=== PATIENT | male | born 1990 | race Caucasian/White ===

== ENCOUNTER 2020-11-03 19:39 | Emergency (ER) | payer SELFPAY ==
[2020-11-03 20:05] VITALS: BP 128/84; PULSE 78; RESP 16; TEMP 36.7; O2SAT 98; BMI 28.7
--- NOTE | 2020-11-03 22:18 | ED_ITS ---
HPI - General Adult General: Chief complaint: General Medical Stated complaint: abd pain Time Seen by Provider: 11/03/20 22:18 History of Present Illness: HPI narrative: Patient is a 29-year-old male comes to the ED with abdominal pain. Patient says symptoms started several hours just prior to arrival. He noticed that when he was taking a shower he looked down and his left inguinal region he saw a bulging mass in his left inguinal region. He said he started having some pain there in the left inguinal region. He rates his pain currently a 3 out of 10. 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 Denies any fever, chills, nausea/vomiting, diarrhea or constipation, chest pain, dysuria or hematuria. Associated symptoms: Deny chest pain, dyspnea, headache(s), nausea, rash, palpitations or vomiting Review of Systems Const: Denies: fever(s), chills or fatigue Eyes: Denies: change in vision or eye discomfort ENMT: Denies: throat pain, odynophagia, nasal discharge or nasal congestion Card: Denies: chest pain, palpitations, edema, swelling of feet/ankles, dyspnea on exertion or orthopnea Resp: Denies: dyspnea, productive cough or non-productive cough GI: Reports: abdominal pain; Denies: nausea, vomiting, diarrhea, constipation or hematochezia : Denies: flank pain, difficulty urinating, dysuria or hematuria Musc: Denies: neck pain, back pain or extremity swelling Skin/Breast: Denies: rash or new lesions Neuro: Denies: headache(s), numbness in extremities or weakness in extremities Physical Exam Const: COMMON NORMALS: no acute distress, patient oriented x3 and alert GENERAL APPEARANCE: cooperative and comfortable HENMT: COMMON NORMALS: normocephalic HEAD & SCALP: normocephalic MOUTH: Normal oral and palatal mucosa present THROAT: posterior oropharynx normal and uvula midline Eye: COMMON NORMALS: Equal, round and reactive pupils present PUPIL: Yes Equal, round and reactive pupils present Neck/C-Spine: COMMON NORMALS: supple GENERAL: Yes normal visual inspection Resp: COMMON NORMALS: normal respiratory effort, No retractions, No use of accessory muscles and clear to auscultation bilaterally AUSCULTATION: clear to auscultation bilaterally Cardio: COMMON NORMALS: regular rate, regular rhythm, S1 normal heart sound present, S2 normal heart sound present, No gallops present (Cardio), No clicks present (Cardio), No murmurs present (Cardio) and Peripheral pulses 2+ throughout RATE: regular rate RHYTHM: regular rhythm HEART SOUNDS: S1 normal heart sound present and S2 normal heart sound present PERIPHERAL PULSES: Peripheral pulses 2+ throughout GI: COMMON NORMALS: Normal to inspection, nondistended, normoactive bowel sounds present, Soft to palpation, non-tender and no masses PALPATION: Yes Soft to palpation, Yes Tenderness to palpation present (GI) Details: other (Left lower inguinal region.) and Yes Hernia present (Hernia is easily reducible.) indirect inguinal (Reducible mass approximately 2 to 3 cm in size.) Indirect inguinal hernia laterality: left : COMMON NORMALS: Yes no CVA tenderness BLADDER/KIDNEY EXAM: Yes no CVA tenderness Back/Pelvis: COMMON NORMALS: no CVA tenderness Extremity: COMMON NORMALS: normal to inspection Neuro: COMMON NORMALS: patient oriented x3 and moves all extremities SENSORIUM/ORIENTATION: Yes alert Skin: GENERAL SKIN EXAM: dry skin Course Vital Signs: Vital signs: Vital Signs Temperature 98.1 F 11/03/20 20:05 Pulse Rate 71 11/04/20 00:23 Respiratory Rate 18 11/04/20 00:23 Blood Pressure 135/89 11/04/20 00:23 Pulse Oximetry 100 11/04/20 00:23 MDM - General Adult MDM Narrative: Medical decision making narrative: Patient is a 29-year-old male comes to the ED with left inguinal hernia. Left inguinal hernia. Hernia was easily reducible. CBC and CMP were unremarkable. CT of abdomen showed left indirect inguinal hernia. I placed an order with case management for patient be referred to general surgery. Patient was diagnosed with left inguinal hernia discharged home. He was told that case management will contact him to set up appoint with general surgery in the next couple days. Return to ED precautions given. Patient understood agree with plan. Lab Data: Attestation: I reviewed the patient's lab results. Labs: Lab Results 11/03/20 11/03/20 Range/Units 23:08 23:08 WBC 6.8 (4.0-10.0) 10^3/ uL RBC 4.73 (4.1-5.3) 10^6/u L Hgb 14.0 (11.7-16.6) g/dL Hct 42.1 (42.0-52.0) % MCV 89.0 (80-94) fL MCH 29.6 (28.0-34.0) pg MCHC 33.3 (30.0-36.0) g/dL RDW 12.3 (12.1-15.1) % Plt Count 218 (130-400) 10^3/c mm MPV 9.8 (7.4-10.4) fL Neut % (Auto) 59.9 % Lymph % (Auto) 32.4 % Powell % (Auto) 6.6 % Eos % (Auto) 0.7 % Baso % (Auto) 0.3 % Neut # (Auto) 4.09 (1.8-7.7) 10^3/u L Lymph # (Auto) 2.2 (0.8-4.8) 10^3/u L Powell # (Auto) 0.5 (0.2-0.9) 10^3/u L Eos # (Auto) 0.1 (0.0-0.8) 10^3/u L Baso # (Auto) 0.0 (0.0-0.1) 10^3/u L Nucleated RBC % (a uto) 0 % Nucleated RBCs # 0.0 /100WBC Sodium 137 (136-145) mmol/L Potassium 4.0 (3.5-5.1) mmol/L Chloride 102 (98-107) mmol/L Carbon Dioxide 26 (22-29) mmol/L Anion Gap 13.0 (5-19) BUN 10 (6-20) mg/dL Creatinine 0.9 (0.7-1.2) mg/dL GFR Calculation 99.8 (90-130) mL/min Glucose 84 (65-115) mg/dL Calculated Osmolal ity 282 L (285-295) mOsm/k g Calcium 9.0 (8.5-10.5) mg/dL Total Bilirubin 0.3 (0.15-1.2) mg/dL AST 15 (0-40) U/L ALT 16 (0-41) U/L Alkaline Phosphata se 85 (40-130) IU/L Total Protein 7.1 (6.6-8.7) g/dL Albumin 4.1 (3.5-5.2) g/dL Globulin 3.0 (1.3-4.6) g/dL Imaging Data^: CT Abd/Pel: Attestation: I personally reviewed and interpreted this imaging study as follows: [facility]'s [facility]: [facility] [address] [place] [address] CT Scan Report Signed Patient: Jd Watts Jr Unit #: [id number] : 1990 Acct#:[id number] Age/Sex: 29 / M ADM Date: 11/03/20 Loc: ER Room/Bed: Attending Dr: Ordering Provider/Ordering MD: Les Ames Date of Service: 11/03/20 Procedure(s): CT abdomen pelvis w con* [id number] Accession Number(s): [id number] Report Number: [id number] PROCEDURE INFORMATION: Exam: CT Abdomen And Pelvis With Contrast Exam date and time: 11/03/2020 10:51 PM Age: 29 years old Clinical indication: Abdominal pain; Localized; Left lower quadrant (llq); Patient HX: Pain in left groin; Additional info: Left inguinal hernia TECHNIQUE: Imaging protocol: Computed tomography of the abdomen and pelvis with contrast. Radiation optimization: All CT scans at this facility use at least one of these dose optimization techniques: automated exposure control; mA and/or kV adjustment per patient size (includes targeted exams where dose is matched to clinical indication); or iterative reconstruction. Contrast material: OMNI 300; Contrast volume: 95 ml; Contrast route: INTRAVENOUS (IV); COMPARISON: No relevant prior studies available. RADIATION DOSE METRICS: Total DLP (mGy-cm): 593.65 FINDINGS: Liver: Normal. No mass. Gallbladder and bile ducts: Normal. No calcified stones. No ductal dilation. Pancreas: Normal. No ductal dilation. Spleen: Normal. No splenomegaly. Adrenal glands: Normal. No mass. Kidneys and ureters: Normal. No hydronephrosis. Stomach and bowel: Unremarkable. No obstruction. No mucosal thickening. Appendix: The appendix is normal. Intraperitoneal space: Unremarkable. No free air. No significant fluid collection. Vasculature: Unremarkable. No abdominal aortic aneurysm. Lymph nodes: Unremarkable. No enlarged lymph nodes. Urinary bladder: Unremarkable as visualized. Reproductive: Unremarkable as visualized. Bones/joints: Bilateral L5 spondylolysis is noted. No acute fracture Soft tissues: Small left indirect inguinal hernia containing fat is noted. CT/CT abdomen pelvis w con* [id number] IMPRESSION: No acute abnormality is seen. Small left indirect inguinal hernia containing fat is noted. Radiation Dose CTDIVOL = (mGy): DLP = 593.65 (mGy-cm) Dictated By: Fabien Alexander MD Signed By: Fabien Alexander MD Signed Date/Time: 11/03/202328 DD/ 27 Discharge Plan Discharge Patient Disposition: Home Clinical Impression: Indirect inguinal hernia Condition: Stable Discharge Orders: Discharge ED (Routine); Ordered 11/04/20 Ordered By: Les Ames Discharge Diet: Regular Discharge Activity: Increase activity as tolerated Patient Instructions: Inguinal Hernia (ED) Activity Restrictions/Additional Instructions: Follow-up with medical provider as directed. Case management should be contacting you in the next several days to set up an appointment with the general surgeon for evaluation of indirect inguinal hernia. Make sure to use proper lifting technique and body mechanics and try to avoid any heavy lifting if possible. Return to the ER or your medical provider if condition worsens. Pl ease read and understand discharge instructions. If any questions, please ask. Coding Level of Care Code ED Image Archivist for Ezequiel Fwd Exam Comprehensive
--- NOTE | 2020-11-03 22:48 | CTR_ITS ---
PROCEDURE INFORMATION: Exam: CT Abdomen And Pelvis With Contrast Exam date and time: 11/03/2020 10:51 PM Age: 29 years old Clinical indication: Abdominal pain; Localized; Left lower quadrant (llq); Patient HX: Pain in left groin; Additional info: Left inguinal hernia TECHNIQUE: Imaging protocol: Computed tomography of the abdomen and pelvis with contrast. Radiation optimization: All CT scans at this facility use at least one of these dose optimization techniques: automated exposure control; mA and/or kV adjustment per patient size (includes targeted exams where dose is matched to clinical indication); or iterative reconstruction. Contrast material: OMNI 300; Contrast volume: 95 ml; Contrast route: INTRAVENOUS (IV); COMPARISON: No relevant prior studies available. RADIATION DOSE METRICS: Total DLP (mGy-cm): 593.65 FINDINGS: Liver: Normal. No mass. Gallbladder and bile ducts: Normal. No calcified stones. No ductal dilation. Pancreas: Normal. No ductal dilation. Spleen: Normal. No splenomegaly. Adrenal glands: Normal. No mass. Kidneys and ureters: Normal. No hydronephrosis. Stomach and bowel: Unremarkable. No obstruction. No mucosal thickening. Appendix: The appendix is normal. Intraperitoneal space: Unremarkable. No free air. No significant fluid collection. Vasculature: Unremarkable. No abdominal aortic aneurysm. Lymph nodes: Unremarkable. No enlarged lymph nodes. Urinary bladder: Unremarkable as visualized. Reproductive: Unremarkable as visualized. Bones/joints: Bilateral L5 spondylolysis is noted. No acute fracture Soft tissues: Small left indirect inguinal hernia containing fat is noted. CT/CT abdomen pelvis w con* [id number] IMPRESSION: No acute abnormality is seen. Small left indirect inguinal hernia containing fat is noted. Radiation Dose CTDIVOL = (mGy): DLP = 593.65 (mGy-cm)
[2020-11-03] MEDS: iohexol 300 mg/mL 100 mL Btl IV (23:15)
[2020-11-03 23:16] LABS: Basophils % 0.3 %; Eosinophils # 0.1 10^3/uL (0.0-0.8); Eosinophils % 0.7 %; Hematocrit 42.1 % (42.0-52.0); Lymphocytes # 2.2 10^3/uL (0.8-4.8); Lymphocytes % 32.4 %; Mean Corpuscular HGB Conc 33.3 g/dL (30.0-36.0); Mean Corpuscular Hemoglobin 29.6 pg (28.0-34.0); Mean Platelet Volume 9.8 fL (7.4-10.4); Monocytes # 0.5 10^3/uL (0.2-0.9); Monocytes % 6.6 %; Neutrophils # 4.09 10^3/uL (1.8-7.7); Neutrophils % 59.9 %; Nucleated Red Blood Cells % 0 %; Platelet Count 218 10^3/cmm (130-400); Red Blood Count 4.73 10^6/uL (4.1-5.3); Red Cell Distribution Width 12.3 % (12.1-15.1); White Blood Count 6.8 10^3/uL (4.0-10.0)
[2020-11-03 23:39] LABS: Alanine Aminotransferase 16 U/L (0-41); Albumin Level 4.1 g/dL (3.5-5.2); Alkaline Phosphatase 85 IU/L (40-130); Aspartate Amino Transferase 15 U/L (0-40); Blood Urea Nitrogen 10 mg/dL (6-20); Carbon Dioxide 26 mmol/L (22-29); Chloride 102 mmol/L (98-107); Glomerular Filtration Rate 99.8 mL/min (90-130); Glucose 84 mg/dL (65-115); Osmolality Calculated 282 mOsm/kg (285-295); Sodium 137 mmol/L (136-145); Total Bilirubin 0.3 mg/dL (0.15-1.2); Total Protein 7.1 g/dL (6.6-8.7)
[2020-11-03] MEDS: sodium chloride 0.9% 1,000 ML 999 ML IV (23:45)
[2020-11-04 00:23] VITALS: BP 135/89; PULSE 71; RESP 18; O2SAT 100
--- NOTE | 2020-11-06 09:55 | DCPLANNER ---
engineering program manager had message to schedule a follow up appointment for patient with general surgery. engineering program manager emailed patients information to Jose at [facility] General Surgery. Patients information will be printed and reviewed. Clinic will call patient with appointment information.
--- NOTE | 2020-11-08 13:42 | DCPLANNER ---
Patient has a follow up appointment scheduled for , November 16, 2020 at 10:[address] Hicks at [facility] General Surgery. Clinic will call patient with appointment information.
--- NOTE | 2020-11-29 15:41 | DCPLANNER ---
Patient had a follow up appointment scheduled for 11.16.[address] Contreras at general surgery - patient did attend appointment.
== END 2020-11-04 00:25 | disposition home or self-care (01) ==
PROVIDERS: Emergency Provider Physician Assistant
DX: K40.90 Unilateral inguinal hernia, without obstruction or gangrene, not specified as recurrent (principal)
CPT/HCPCS: 74177; 80053; 85025; 96360; 99283; J7030; Q9967

== ENCOUNTER → 2020-11-21 09:46 | Outpatient (BNVA) | payer SELFPAY | PROVIDERS: Visit Provider Surgery | DX: K40.90 Unilateral inguinal hernia, without obstruction or gangrene, not specified as recurrent (principal); Z20.822 Contact with and (suspected) exposure to COVID-19 | CPT/HCPCS: 87635 ==

== ENCOUNTER 2020-11-27 06:42 | Day surgery (SDC) | payer SELFPAY ==
[2020-11-27] VITALS (9 sets, daily range): BP systolic 124–171; BP diastolic 78–118; PULSE 58–121; RESP 15–25; TEMP 36.6–36.9; O2SAT 98–100
--- NOTE | 2020-11-27 07:22 | ANES.PREANE2 ---
Pre-Anesthetic Assessment Pre-Anesthetic Assessment: Height/Weight: Height 1.78 m Weight 86.183 kg Temp Pulse Resp BP Pulse Ox 98.5 F 74 18 125/78 99 11/27/20 06:59 11/27/20 06:59 11/27/20 06:59 11/27/20 06:59 11/27/20 06:59 Preop Diagnosis: Left inguinal hernia Proposed Procedure: Operation Date: 11/27/20 08:15 Proposed Procedures p Laparoscopic Inguinal Hernia Repair w/Mesh left poss right inguinal hernia repair with mesh poss open 95544 K40.90(Not Applicable) - Too Hicks MD Was Beta Kannan taken within 24 hours: N/A Was Clonidine taken within 24 hours: N/A Last intake: Intake Last Liquid Date 11/26/20 Last Liquid Time 20:00 Last Solid Date 11/26/20 Last Solid Time 20:00 Exam: Pre-Anes Outpt Exam: alert, oriented x 3, clear to auscultation bilaterally and regular rate & rhythm Airway: Submandibular: WNL Cervical ROM: WNL MP: 2 Dentition: Chipped Additional comments: several missing History/ROS: No significant history except as noted and No significant complaints Pulmonary: Pulmonary: None reported CV/HEM: CV/HEM: None reported : : None reported Hepatic: Hepatic: None reported GI: GI: None reported Metabolic: Metabolic: None reported Musc/skel: Musc/skel: None reported Neuropsych: Neuropsych: None reported Anesthetic Plan: ASA status: 2 Anesthesia: General Risk of > 500 ml blood loss (7ml/kg in children): No Data Anesthesia Cardiac Studies: No Data to Display
[2020-11-27] MEDS: sodium chloride 0.9% 1,000 ML 30 ML IV (07:27)
[2020-11-27] MEDS: acetaminophen 1,000 MG/100 ML PIGGYBACK 400 MG IV (07:30)
--- NOTE | 2020-11-27 07:46 | W.PM.OPSUD ---
Surgery/Procedure H&P Update DATE OF PROCEDURE: November 27, 2020 DATE H&P PERFORMED: 11/16/20 H&P UPDATE INFORMATION: I have reviewed H&P completed within last 30 days, I have examined patient prior to procedure and No changes to prior documentation PREOP DIAGNOSIS: Left inguinal hernia PRIMARY INDICATION FOR PROCEDURE: The same PLANNED PROCEDURE: Operation Date: 11/27/20 08:15 Proposed Procedures p Laparoscopic Inguinal Hernia Repair w/Mesh left poss right inguinal hernia repair with mesh poss open 66655 K40.90(Not Applicable) - Too Hicks MD
--- NOTE | 2020-11-27 09:47 | SUR.OPER ---
CALLED AND GAVE UPDATE ON PROCEDURE
--- NOTE | 2020-11-27 10:20 | P.OP_ITS ---
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 Procedure: Transabdominal preperitoneal (KAREN) approach. Patient was identified in the holding area ,patient was transferred to the [facility] room where he was placed in supine position, with both arms were tucked, antibiotic was given with induction, endotracheal tube was placed per anesthesia, White catheter was inserted by the circulating nurse and revealed clear urine, prep and drape of the abdomen was done under the usual sterile technique as well as the scrotal area. Time-out was done verifying the patient's name/date of /planned procedure destination after the procedure, all were in agreement. SCDs confirmed to be functioning, preoperative antibiotics administered per protocol, and beta kaiden protocol was confirmed. A vertical skin incision of 1.2 cm was made with 11 blade knife through the supra umbilicus , incision was carried down to the subcutaneous tissue and deepened to identify the anterior fascia, two stay sutures were applied to the fascia, and safe entrance to the abdominal cavity was achieved, a Winter trocar technique safe entry to the abdominal cavity was achieved verified by using 10 mm zero degree laparoscopy, switched to a 30 degrees scope,low flow followed by a higher flow of CO2 gas up to 15 mmHg. There was no evidence of injury to intra-abdominal structures from the port entry, attention was deviated to both groins, there was no evidence of inguinal hernias on the right side, two 5 mm ports were placed on the right and left lateral aspect of the abdomen slightly above the level of the umbilicus, under direct visualization, anesthesia 2% lidocaine local was injected at all trocar sites prior to incisions. The peritoneum above the level of the iliopubic tract was incised using the harmonic scalpel to the right of the midline and dissection was performed to create a preperitoneal space medial to lateral aspect up to anterior superior iliac spine on the LEFT side.Dissection was continued onto the medial aspect and the left spermatic was identified, there was evidence of indirect inguinal hernia .the sac was dissected. As it applied medial to the left inferior epig astric vessels/ dissection was performed to clear the space lateral to the spermatic cord and dorsomedial to it, the hernia sac was reduced and retracted far back, also there was an evidence of lipoma of the cord that was excised and sent for permanent pathology. There was some oozing towards the medial side where harmonic scalpel was used for hemostasis and piece of Surgicel was then applied. Then a large left 3-D mesh was rolled and placed into the abdominal cavity through the Winter port, after the mesh was introduced it was positioned to lie in the myopectineal orifice and the mesh was unrolled and this covered the entire my myope pectineal orifice, mesh remained in good position. On the lateral aspect of the mesh extended up to the anterior superior iliac spine on the medial aspect the mesh crossed the midline onto the right side, then using absorbable tacks,placed above the iliopubic tract onto the rectus abdominis muscle on the medial aspect and also to the lateral abdominal wall superomedial to the sacroiliac spine, then the mesh was also anchored to the pubis and the Po's ligament inferiorly. The peritoneal leaflets were then brought together to cover the mesh and isolated from the other viscera, extra tacks were used to secure the peritoneum in good position. Was a small opening the peritoneal covering and 5 mm clips were used for closure Final look demonstrated good hemostasis and the mesh in good position. A total of 20 mL Exparel 40 ml Normal saline 20 ml bupivacaine 0.25% were injected at the remaining of the tacks site and trocar sites as well Final look demonstrated good hemostasis.Then the fascia on the supra umbilical fascial defect was closed using #1 PDS sutures under direct visualization using fascial closure device Augusto Garvey.All ports were removed,then the abdomen was desufflated. All skin incisions were closed with 4-0 Monocryl subcuticular suture and Dermabond was applied. The patient tolerated the procedure well, White catheter was taken out ,got extubated and was transferred to the recovery area in stable condition All counts of instruments, needles and sponges were completed I was present for the whole entire procedure
[2020-11-27] MEDS: fentaNYL 50 mcg/mL INJ 2mL IVP (10:46)
--- NOTE | 2020-11-27 11:11 | SUR.PHASEII ---
ice packs applied to groin and naval per request of Dr. Hicks.
--- NOTE | 2020-11-27 11:34 | SUR.PHASEI ---
1042 PT RESTLESS LABORED RESP TRYING TO SIT UP IN BED, PT APPEARS PANICKED AND BP ELEVATED ANESTHESIA AT BEDSIDE AND PT REVERSED AGAIN, PT QUICKLY SETTLES DOWN ADN NOW C/O OF NEEDING TO URINATE, PT REMINDED THAT HE HAD A ROSALES CATHETER IN OR, AND REMOVED BEFORE COMING TO PACU 1101 PT ALERT STATES PAIN IS MUCH BETTER, PT OK WITH TAKING PO PAIN MED IN OPS WITH DR QUINTERO TO DRINK, HANDOFF AT BEDSIDE.
[2020-11-27] MEDS: HYDROcodone-acetaminophen 5-325 mg Tablet 1 TAB PO (11:35)
--- NOTE | 2020-11-27 18:58 | ANE.PACU2 ---
Inpatient post-anesthesia follow up: Airway intact: Yes Vital signs: Temperature 98.1 F Pulse Rate 67 Respiratory Rate 18 Blood Pressure 133/92 Pulse Oximetry 98 Oxygen Delivery Me thod Room Air Oxygen Flow Rate 8 Fraction of Inspir ed Oxygen Hydration adequate: Yes Nausea and vomiting: No Pain level: 2 Mental status: Baseline
== END 2020-11-27 13:00 | disposition home or self-care (01) ==
PROVIDERS: Visit Provider Surgery
PROC: (CPT 49650; principal; 2020-11-27 08:15)
DX: K40.90 Unilateral inguinal hernia, without obstruction or gangrene, not specified as recurrent (principal); D17.6 Benign lipomatous neoplasm of spermatic cord
CPT/HCPCS: 49650; 88302; 96365; C1781; C9290; J0690; J1100; J2405; J2704; J3010; J3490; J7030